=== PATIENT | female | born 1950 | race Caucasian/White ===

== ENCOUNTER → 2018-04-24 | Outpatient (CLI) | payer OTHER ==
[~2018-04-24] MED LIST: LEVSOD50; LOSARTAN; Percocet 5-3251 EACH PO; SIMV40; THYROXINE; ZOCOR
== END ==
LOC: LAB EV 15:40 → LAB SHORT 15:40
DX: N10 Acute pyelonephritis (principal)
CPT/HCPCS: 87086; 87147

== ENCOUNTER → 2020-05-10 | Outpatient (CLI) | payer MEDICARE ==
[2020-05-11 06:25] LABS: C DIFFICILE DNA NEGATIVE (Negative)
== END | disposition home or self-care (01) ==
LOC: PLD 16:07 → LAB SHORT 16:07
PROVIDERS: Nurse Practitioner
DX: K58.0 Irritable bowel syndrome with diarrhea (principal); R19.7 Diarrhea, unspecified
CPT/HCPCS: 87015; 87045; 87046; 87177; 87205; 87209; 87328; 87329; 87493; 87899

== ENCOUNTER → 2021-05-24 | Outpatient (CLI) | payer MEDICARE | END | disposition home or self-care (01) | LOC: LAB SHORT 17:00 → LAB 17:00 | DX: N39.46 Mixed incontinence (principal) | CPT/HCPCS: 87077; 87086; 87186 ==

== ENCOUNTER → 2021-08-16 | Outpatient (CLI) | payer MEDICARE ==
[2021-08-16 13:48] LABS: Source, Urine Clean Catch
[2021-08-16 14:42] LABS: Appearance, Urine Clear (Clear); Bilirubin, Urine Neg (Neg); Blood, Urine 2+ (Neg); Color, Urine Yellow (P-Yellow); Glucose Qualitative, Urine Neg (Neg); Ketones, Urine Neg (Neg); Leukocyte Esterase, Urine Neg (Neg); Nitrite, Urine Neg (Neg); Protein, Urine 1+ (Neg); Urobilinogen, Urine NORM (Normal); pH, Urine 6.5 (5.0-8.0)
[2021-08-16 14:59] LABS: Bacteria Mod /hpf; Red Blood Cells, Urine 0-2 /hpf (0-2); Squamous Epithelial Cells Few /hpf (Few)
== END | disposition home or self-care (01) ==
LOC: LAB SHORT 13:46 → LAB 13:46
PROVIDERS: Obstetrics & Gynecology
DX: M54.50 Low back pain, unspecified (principal)
CPT/HCPCS: 81001; 87077; 87086; 87186

== ENCOUNTER → 2022-02-11 | Outpatient (CLI) | payer MEDICARE ==
[2022-02-11 13:16] LABS: Source, Urine Clean Catch
[2022-02-11 15:57] LABS: Bilirubin, Urine Neg (Neg); Blood, Urine 4+ (Neg); Glucose Qualitative, Urine Neg (Neg); Ketones, Urine Neg (Neg); Leukocyte Esterase, Urine 1+ (Neg); Nitrite, Urine Neg (Neg); Protein, Urine 2+ (Neg); Urobilinogen, Urine NORM (Normal)
[2022-02-11 16:20] LABS: Appearance, Urine Hazy (Clear); Color, Urine Pale Yellow (P-Yellow)
[2022-02-11 16:21] LABS: Bacteria Few /hpf; Squamous Epithelial Cells Many /hpf (Few)
== END | disposition home or self-care (01) ==
LOC: LAB 13:12 → LAB SHORT 13:12
PROVIDERS: Obstetrics & Gynecology
DX: M54.50 Low back pain, unspecified (principal)
CPT/HCPCS: 81001; 87077; 87086; 87186

== ENCOUNTER → 2022-04-11 | Outpatient (CLI) | payer MEDICARE ==
[2022-04-11 14:58] LABS: Source, Urine Clean Catch
[2022-04-11 16:58] LABS: Appearance, Urine Cloudy (Clear); Bilirubin, Urine Neg (Neg); Blood, Urine 4+ (Neg); Color, Urine Yellow (P-Yellow); Glucose Qualitative, Urine Neg (Neg); Ketones, Urine Neg (Neg); Leukocyte Esterase, Urine 1+ (Neg); Nitrite, Urine Neg (Neg); Protein, Urine 2+ (Neg); Specific Gravity, Urine 1.015 (1.003-1.022); Urobilinogen, Urine NORM (Normal)
[2022-04-11 17:28] LABS: Bacteria Many /hpf; Squamous Epithelial Cells Few /hpf (Few); White Blood Cells, Urine 0-2 /hpf (0-5)
== END | disposition home or self-care (01) ==
LOC: LAB SHORT 12:15 → LAB 12:15
PROVIDERS: Obstetrics & Gynecology
DX: R82.90 Unspecified abnormal findings in urine (principal)
CPT/HCPCS: 81001; 87077; 87086; 87147; 87186

== ENCOUNTER → 2022-06-10 | Outpatient (CLI) | payer MEDICARE ==
[2022-06-10 14:36] LABS: Bacteria Many /hpf; Squamous Epithelial Cells Few /hpf (Few)
== END | disposition home or self-care (01) ==
LOC: LAB SHORT 10:15 → LAB 10:15
PROVIDERS: Family Medicine
DX: R35.1 Nocturia (principal)
CPT/HCPCS: 81015; 87077; 87086; 87147; 87186

== ENCOUNTER 2024-04-06 12:06 | Day surgery (SDC) | payer OTHER ==
[~2024-04-06] VITALS: Ht 167.6 cm; Wt 90.4 kg
[~2024-04-06 12:06] MED LIST changes: +Atropine Sulfate 0.1 MG/ML 10ML SYR ONE; +Glycopyrrolate 0.2 MG/ML 1MLVIAL ONE; +Lactated Ringer's 1,000 ML IV ONE; +Lidocaine 2% 5 ML SDV ONE; +Lidocaine HCl/Pf 1% 5 ML VIAL ONE; +Methylene Blue 1% 100 MG/10 ML VIAL ONE; +Ondansetron HCl 2 MG / ML 2ML Vial ONE; +ePHEDrine Sulfate 50 MG/ML 1ML Injection ONE; +propofoL 50 ML IV ONE
[2024-04-06] MEDS ORDERED: Norvasc5 MG PO (12:47)
[2024-04-06] MEDS ORDERED: Sanctura20 MG (12:47)
[2024-04-06] MEDS ORDERED: Cytotec200 MCG (12:48)
[2024-04-06] MEDS ORDERED: DICL75ER PO (12:48)
[2024-04-06] MEDS ORDERED: ESTROVEN CMPLT M4 MG PO (12:49)
[2024-04-06] MEDS ORDERED: Lactated Ringer's 1,000 ML IV ONE (12:55)
[2024-04-06 14:29] VITALS: BP 116/76
== END 2024-04-06 14:26 | disposition home or self-care (01) ==
LOC: ORSCSDS 12:06
PROVIDERS: Internal Medicine Gastroenterology
PROC: 0DBL8ZX Excision of Transverse Colon, Via Natural or Artificial Opening Endoscopic, Diagnostic (ICD-10-PCS; principal; 2024-04-06 14:00)
PROC: 0DBH8ZX Excision of Cecum, Via Natural or Artificial Opening Endoscopic, Diagnostic (ICD-10-PCS; principal; 2024-04-06 14:00)
DX: Z12.11 Encounter for screening for malignant neoplasm of colon (principal); Z86.0101 Personal history of adenomatous and serrated colon polyps; K63.5 Polyp of colon; K57.30 Diverticulosis of large intestine without perforation or abscess without bleeding; K55.20 Angiodysplasia of colon without hemorrhage; I10 Essential (primary) hypertension; E03.9 Hypothyroidism, unspecified; Z79.899 Other long term (current) drug therapy
CPT/HCPCS: 88305; J0461; J2003; J2405; J2704; J7120; Q9968

== ENCOUNTER 2024-04-27 11:11 | Day surgery (SDC) | payer OTHER ==
[~2024-04-27] VITALS: Ht 167.6 cm; Wt 94.4 kg
[~2024-04-27 11:11] MED LIST changes: -Atropine Sulfate 0.1 MG/ML 10ML SYR ONE; +Balanced Salt Epinephrine Irrigation Solution 500 mL IR SCH; +Cytotec200 MCG; +DICL75ER PO; +ESTROVEN CMPLT M4 MG PO; -Glycopyrrolate 0.2 MG/ML 1MLVIAL ONE; -Lactated Ringer's 1,000 ML IV ONE; -Lidocaine 2% 5 ML SDV ONE; -Lidocaine HCl/Pf 1% 5 ML VIAL ONE; +Lidocaine HCl/Pf 1% 5 ML VIAL XX SCH; -Methylene Blue 1% 100 MG/10 ML VIAL ONE; +Moxifloxacin HCL 0.5 MG/0.1 ML 0.4MLSYR RIGHTEYE SCH; +Norvasc5 MG PO; -Ondansetron HCl 2 MG / ML 2ML Vial ONE; +PHENYLEPHRINE\\TROPICAMIDE\\TETRACAINE OPHTHALMIC DILATING SOLN RIGHTEYE PRN; +Povidone-Iodine 450 DROP/30 ML Solution RIGHTEYE SCH; +Sanctura20 MG; -ePHEDrine Sulfate 50 MG/ML 1ML Injection ONE; -propofoL 50 ML IV ONE
[2024-04-27] MEDS ORDERED: Diazepam 2 MG Tab ONE (11:31)
[2024-04-27] MEDS ORDERED: Diazepam 5 MG Tab ONE (11:32)
--- NOTE | 2024-04-27 11:49 | NUR ---
04/27/24 1149 Justine Cole CALL LIGHT WITHIN REACH.TETRACAINE IN RIGHT EYE AT 1146 AND PLEDGETT IN AT 1147
[2024-04-27] MEDS ORDERED: Tetracaine HCl 0.5% Opth Soln 15 ml RIGHTEYE ONE (12:17)
--- NOTE | 2024-04-27 12:38 | NUR ---
04/27/[address] AT BEDSIDE COVERING DISCHARGE INSTRUCTIONS
[2024-04-27 12:41] VITALS: BP 122/62
[2024-04-27] MEDS ORDERED: Povidone-Iodine 450 DROP/30 ML Solution XX ONE (15:36)
== END 2024-04-27 12:56 | disposition home or self-care (01) ==
LOC: ORSCSDS 11:11
PROVIDERS: Student in an Organized Health Care Education/Training Program
PROC: 08RJ3JZ Replacement of Right Lens with Synthetic Substitute, Percutaneous Approach (ICD-10-PCS; principal; 2024-04-27 12:30)
DX: H25.813 Combined forms of age-related cataract, bilateral (principal); I10 Essential (primary) hypertension; H35.89 Other specified retinal disorders; E03.9 Hypothyroidism, unspecified; Z79.899 Other long term (current) drug therapy
CPT/HCPCS: A9270; V2632

== ENCOUNTER 2024-05-04 06:07 | Day surgery (SDC) | payer OTHER ==
[~2024-05-04] VITALS: Ht 167.6 cm; Wt 93.5 kg
[~2024-05-04 06:07] MED LIST changes: +Moxifloxacin HCL 0.5 MG/0.1 ML 0.4MLSYR LEFTEYE SCH; -Moxifloxacin HCL 0.5 MG/0.1 ML 0.4MLSYR RIGHTEYE SCH; +PHENYLEPHRINE\\TROPICAMIDE\\TETRACAINE OPHTHALMIC DILATING SOLN LEFTEYE PRN; -PHENYLEPHRINE\\TROPICAMIDE\\TETRACAINE OPHTHALMIC DILATING SOLN RIGHTEYE PRN; +Povidone-Iodine 450 DROP/30 ML Solution LEFTEYE SCH; +Povidone-Iodine 450 DROP/30 ML Solution ONE; -Povidone-Iodine 450 DROP/30 ML Solution RIGHTEYE SCH; +Tetracaine HCl/Pf 0.5% Opth Soln 4 ml ONE
[2024-05-04] MEDS ORDERED: Diazepam 2 MG Tab ONE (06:15)
[2024-05-04] MEDS ORDERED: Diazepam 5 MG Tab ONE (06:16)
[2024-05-04] MEDS ORDERED: Lidocaine HCl/Pf 1% 5 ML VIAL ONE (06:42)
[2024-05-04] MEDS ORDERED: Ondansetron HCl 2 MG / ML 2ML Vial ONE (07:10)
--- NOTE | 2024-05-04 07:11 | NUR ---
05/04/24 0711 LIZABETH MENENDEZ ANXIETY 699
[2024-05-04 07:53] VITALS: BP 123/60
== END 2024-05-04 08:10 | disposition home or self-care (01) ==
LOC: ORSCSDS 06:07
PROVIDERS: Student in an Organized Health Care Education/Training Program
PROC: 08RK3JZ Replacement of Left Lens with Synthetic Substitute, Percutaneous Approach (ICD-10-PCS; principal; 2024-05-04 07:30)
DX: H25.812 Combined forms of age-related cataract, left eye (principal); Z96.1 Presence of intraocular lens; I10 Essential (primary) hypertension; E03.9 Hypothyroidism, unspecified; H35.89 Other specified retinal disorders; Z79.899 Other long term (current) drug therapy
CPT/HCPCS: A9270; J2003; J2405; V2632

== ENCOUNTER → 2024-06-11 | Outpatient (CLI) | payer OTHER ==
[~2024-06-11] MED LIST changes: -Balanced Salt Epinephrine Irrigation Solution 500 mL IR SCH; -Lidocaine HCl/Pf 1% 5 ML VIAL XX SCH; -Moxifloxacin HCL 0.5 MG/0.1 ML 0.4MLSYR LEFTEYE SCH; -PHENYLEPHRINE\\TROPICAMIDE\\TETRACAINE OPHTHALMIC DILATING SOLN LEFTEYE PRN; -Povidone-Iodine 450 DROP/30 ML Solution LEFTEYE SCH; -Povidone-Iodine 450 DROP/30 ML Solution ONE; -Tetracaine HCl/Pf 0.5% Opth Soln 4 ml ONE
== END ==
LOC: LAB SHORT 15:00 → LAB 15:00
DX: R30.0 Dysuria (principal)
CPT/HCPCS: 87077; 87086; 87147; 87186

== ENCOUNTER → 2024-12-21 | Outpatient (CLI) | payer OTHER | LOC: LAB SHORT 16:53 → LAB 16:53 | DX: N39.0 Urinary tract infection, site not specified (principal) | CPT/HCPCS: 87077; 87086; 87186 ==

== ENCOUNTER → 2025-02-10 | Outpatient (CLI) | payer OTHER ==
[2025-02-10 12:14] LABS: Source, Urine Clean Catch
[2025-02-10 12:28] LABS: Bilirubin, Urine Neg (Neg); Color, Urine Yellow (P-Yellow); Glucose Qualitative, Urine Neg (Normal); Ketones, Urine Neg (Neg); Leukocyte Esterase, Urine 1+ (Neg); Protein, Urine Trace (Neg); Specific Gravity, Urine 1.020 (1.003-1.022); Urobilinogen, Urine NORM (Normal)
[2025-02-10 12:29] LABS: Red Blood Cells, Urine 0-2 /hpf (0-2)
== END ==
LOC: LAB 12:07 → LAB SHORT 12:07
PROVIDERS: Family Medicine
DX: N39.0 Urinary tract infection, site not specified (principal)
CPT/HCPCS: 81001; 87077; 87086; 87186